=== PATIENT | female | born 1950 | race Native Hawaiian/Other Pacific Islander ===

== ENCOUNTER 2022-03-31 14:14 | Outpatient (CLI) | payer OTHER, BC ==
[~2022-03-31 14:14] MED LIST: AMLODIPINE BESYLATE PO; BYSTOLIC10 MG PO; EQ LORATADINE10 MG PO; EUTHYROX25 MCG PO; FISH OIL OMEGA-1 CAP PO; HYDR25SU3 RE; HYDR25TA60 PO; IRBE150T4 PO; IRBESARTAN150 MG PO; LINZESS145 MCG PO; LIPITOR20 MG PO; METF100038 PO; METFORMIN HYD1000 M2 PO; MONT10TA PO; NEBIVOLOL10 MG PO; NOVOLOG FL100 UNIT/M SC; OMEGA 31000 MG PO; PANTOPRAZOLE 40MG TA PO; PIOG30TA PO; PROTONIX20 MG PO; TOUJEO MAX300 UNIT/M SC; TRICOR145 M1 PO
[2022-03-31 14:26] LABS: PLATELET COUNT 207 K/uL (152-353)
== END 2022-03-31 21:24 | disposition home or self-care (01) ==
LOC: LABW 14:14
PROVIDERS: ATTEND Internal Medicine Gastroenterology
DX: K92.2 Gastrointestinal hemorrhage, unspecified (principal)
CPT/HCPCS: 36415; 82728; 85027

== ENCOUNTER 2022-04-10 09:07 | Outpatient (CLI) | payer OTHER, BC | END 2022-04-10 18:56 | disposition home or self-care (01) | LOC: LABW 09:07 | PROVIDERS: ATTEND Internal Medicine Endocrinology, Diabetes & Metabolism | DX: E11.65 Type 2 diabetes mellitus with hyperglycemia (principal) | CPT/HCPCS: 36415; 80053; 84681 ==

== ENCOUNTER 2022-04-18 08:50 | Outpatient (CLI) | payer OTHER, BC | END 2022-04-18 20:22 | disposition home or self-care (01) | LOC: LABW 08:50 | PROVIDERS: ATTEND Internal Medicine Endocrinology, Diabetes & Metabolism | DX: E11.65 Type 2 diabetes mellitus with hyperglycemia (principal) ==